=== PATIENT | male | born 1995 | race Caucasian/White ===

== ENCOUNTER 2020-03-09 11:39 | Emergency (ER) | payer BC, OTHER ==
[2020-03-09 12:22] VITALS: BP 114/77
[2020-03-09] MEDS ORDERED: BUFFERED LIDOCAINE 10 ML SYRINGE SUBQ STA (12:34)
--- NOTE | 2020-03-09 12:35 | ED Physician Documentation ---
PD HPI UPPER EXT INJURY - Stated complaint Stated Complaint: R THUMB INJURY - Chief complaint Chief Complaint: Ext Problem - History obtained from History obtained from: Patient (24-year-old gentleman who is up-to-date on tetanus was chopping a pumpkin and a piece of the stem went under his right thumbnail. Happened just prior to arrival.) Review of Systems Constitutional: reports: Reviewed and negative Eyes: reports: Reviewed and negative Ears: reports: Reviewed and negative PD PAST MEDICAL HISTORY - Present Medications Home Medications: Ambulatory Orders Medication Instructions Recorded Confirmed No Known Home Medications 03/09/20 03/09/20 - Allergies Allergies/Adverse Reactions: Allergies Allergy/AdvReac Type Severity Reaction Status Date / Time No Known Drug Allergies Allergy Verified 03/09/20 12:14 PD ED PE NORMAL - Vitals Vital signs reviewed: Yes - General General: Alert and oriented X 3, No acute distress - Extremities Extremities: Other (There is a visible foreign body underneath the left thumbnail on the radial side.) - Neuro Neuro: Alert and oriented X 3, Normal speech Results - Vitals Vitals: Vital Signs - 24 hr 03/09/20 12:11 Temperature 36.8 C Heart Rate 58 L Respiratory 16 Rate Blood Pressure 114/77 O2 Saturation 100 Oxygen O2 Source Room air Procedures - FB removal FB location: Subcutaneous (After digital block of the right thumb with buffered lidocaine with excellent anesthesia there was a V-shaped cut placed into the thumbnail and then I was able to remove the foreign body in its entirety after which it was irrigated and dressed.) Departure - Departure Disposition: 01 Home, Self Care Clinical Impression: Foreign body (FB) in soft tissue Condition: Good Record reviewed to determine appropriate education?: Yes Instructions: ED Foreign Body Soft Tissue Removed
== END 2020-03-09 13:14 | disposition home or self-care (01) ==
LOC: ED 11:39
DX: S60.351A Superficial foreign body of right thumb, initial encounter (principal); X58.XXXA Exposure to other specified factors, initial encounter; Y93.G1 Activity, food preparation and clean up
CPT/HCPCS: 99282; 99283